=== PATIENT | male | born 1970 | race Native Hawaiian/Other Pacific Islander ===

== ENCOUNTER 2016-03-17 12:00 | Outpatient (CLI) | payer OTHER | END 2016-03-17 12:01 | disposition home or self-care (01) | DX: J06.9 Acute upper respiratory infection, unspecified (principal) ==

== ENCOUNTER 2016-09-21 09:13 | Emergency (ER) | payer OTHER ==
--- NOTE | 2016-09-21 09:56 | XRAY Preliminary Report ---
Exam: XR Wrist 4 View RT IMPRESSION: No fracture. [facility] SITE ID: [id number]
--- NOTE | 2016-09-21 09:59 | XRAY Report ---
EXAM: RIGHT WRIST RADIOGRAPHY EXAM DATE: 09/21/2016 09:47 AM. CLINICAL HISTORY: Patient presents with crush injury to right wrist. Numbness in hand and pain to ant erior and posterior side of wrist. Limited range of motion. COMPARISON: None. TECHNIQUE: 4 views. FINDINGS: Bones: Normal. No fractures or bone lesions. Joints: Normal. No subluxations. Soft Tissues: Normal. No soft tissue swelling. IMPRESSION: No fracture. [facility] Referring Provider Line: [phone] SITE ID: [id number]
[2016-09-21 10:53] VITALS: BP 107/73
--- NOTE | 2016-09-21 10:56 | ED Physician Documentation ---
History of Present Illness - Stated complaint Stated Complaint: R WRIST INJ - Chief complaint Chief Complaint: Ext Problem - History obtained from History obtained from: Patient - Additonal information Additional information: 45-year-old male with no past medical history presents with right wrist pain. Just prior to arrival the patient was pulling an object when it slipped and he struck the volar aspect of his wrist against another hard object causing pain and swelling and occasional numbness and tingling in the right hand. He is now doing better. Is slightly more painful with flexing the affected right wrist. He denies any other injury. He is right-hand dominant. Review of systems: For pertinent positive and negatives in the review of systems please see the history of present illness, otherwise all other systems have been reviewed and are negative. Dragon disclaimer: Parts of this medical record were created using voice recognition technology. Because of the inherent limitations of this system, occasional same sounding word substitutions do occur and persist despite proofreading. Please read the document for context. Review of Systems Musculoskeletal: reports: Extremity pain, Joint pain, Extremity swelling, Joint swelling PD PAST MEDICAL HISTORY - Past Medical History Past Medical History: No Cardiovascular: None Respiratory: None Neuro: None Endocrine/Autoimmune: None GI: None : None HEENT: None Psych: None Musculoskeletal: None Derm: None - Past Surgical History Past Surgical History: Yes General: Cholecystectomy Ortho: Spine surgery - Present Medications Home Medications: Ambulatory Orders Medication Instructions Recorded Confirmed Tramadol HCl 50 mg PO Q8HR PRN #14 tablet 09/21/16 - Allergies Allergies/Adverse Reactions: Allergies Allergy/AdvReac Type Severity Reaction Status Date / Time No Known Drug Allergies Allergy Verified 09/21/16 09:24 - Social History Does the pt smoke?: Yes Smoking Status: Current every day smoker Does the pt drink ETOH?: No Does the pt have substance abuse?: No - Immunizations Immunizations are current?: Yes - POLST Patient has POLST: No PD ED PE NORMAL - General General: Alert and oriented X 3, No acute distress, Well developed/nourished - Extremities Extremities: Other (On examination there is mild soft tissue swelling in the small abrasion seen over the volar aspect of the wrist more on the radial side than the ulnar side. There is a small amount of generalized tenderness to the retinaculum of the right wrist including the dorsal aspect. There is no bony tenderness of the distal radius, ulna, carpal bones metacarpals or phalanges.) Results - Vitals Vitals: Vital Signs - 24 hr 09/21/16 09/21/16 09:22 10:53 Temperature 36.6 C Heart Rate 70 57 L Respiratory 20 16 Rate Blood Pressure 122/83 H 107/73 O2 Saturation 96 98 Oxygen O2 Source Room air PD MEDICAL DECISION MAKING - ED course ED course: Little abrasion contusion noted on the volar aspect of the right wrist. This fits the injury pattern. X-rays are negative. He will be placed in a Velcro splint I will issue a small amount of pain medication follow-up will be with [facility]. The patient wants to return back to work and he will be allowed to do so. Disposition: To home Clinical impression: 1. Right wrist contusion abrasion volar aspect Departure - Departure Disposition: 01 Home, Self Care Clinical Impression: Contusion, wrist Qualifiers: Encounter type: initial encounter Laterality: right Qualified Code(s): S60.211A - Contusion of right wrist, initial encounter Condition: Good Instructions: ED Sprain Wrist Follow-Up: Sameer Cui MD [Primary Care Provider] - Prescriptions: Tramadol HCl 50 mg PO Q8HR PRN #14 tablet PRN Reason: Pain
== END 2016-09-21 11:23 | disposition home or self-care (01) ==
LOC: ED 09:13
DX: S60.211A Contusion of right wrist, initial encounter (principal); W22.8XXA Striking against or struck by other objects, initial encounter; F17.200 Nicotine dependence, unspecified, uncomplicated
CPT/HCPCS: 99283

== ENCOUNTER 2017-02-28 15:45 | Outpatient (CLI) | payer OTHER ==
--- NOTE | 2017-03-01 02:09 | MRI Preliminary Report ---
Exam: MRI LUMBAR SPINE W/O IMPRESSION: 1. Normal conus medullaris and cauda equina. 2. Mild multilevel degenerative changes without high-grade spinal canal or foraminal stenosis. 3. Small acute Schmorl's node at the superior T11 endplate. Comment: The following findings are so common in adults without low back pain that while we report th eir presence, they must be interpreted with caution and in the context of the clinical situation. (Re clari Irby et al, Spine 2001) Prevalence of findings in patients without low back pain: Disk degeneration (any evidence): 92% Disk desiccation/T2 signal loss: 83% Disk height loss: 56% Disk bulge: 64% Disk protrusion: 32% Annular tear/high intensity zone: 38% [facility] SITE ID: [id number]
--- NOTE | 2017-03-01 02:15 | MRI Report ---
EXAM: MRI LUMBAR SPINE WITHOUT CONTRAST EXAM DATE: 02/28/2017 05:08 PM. CLINICAL HISTORY: Chronic low back pain, intermittent leg weakness. COMPARISON: None. TECHNIQUE: Multiplanar, multisequence T1-weighted and fluid-sensitive sequences of the lumbar spine f rom the lower half of T10 to S1 without contrast. Other: None. FINDINGS: Spinal Cord: The conus terminates at T12. The conus medullaris and cauda equina are unremarkable. Alignment: Retrolisthesis at L1-L2 measures 1-2 mm. Bone Marrow: Five [id number] lumbar vertebral bodies are assumed. A small acute Schmorl's node i s noted at the superior T11 endplate. Small chronic Schmorl's nodes are noted at T11-T12, T12-L1, and L1-L2. No other areas of abnormal bone marrow edema are identified. Disk Levels/Facets: T10-T11: On sagittal images, the spinal canal and foramina are patent. T11-T12: On sagittal images, the spinal canal and foramina are patent. T12-L1: On sagittal images, a mild disk bulge is present resulting in mild spinal canal stenosis with out impingement of the conus medullaris. The foramina are patent. L1-L2: A mild disk bulge results in mild bilateral foraminal narrowing and mild spinal canal stenosis . L2-L3: A small left foraminal protrusion results in mild left foraminal narrowing. The spinal canal a nd right foramen are patent. L3-L4: Unremarkable. L4-L5: A disk bulge results in mild bilateral foraminal narrowing and mild spinal canal stenosis. L5-S1: A disk bulge with bilateral facet arthropathy result in mild bilateral foraminal narrowing wit hout spinal canal stenosis. Musculature: Normal. No edema or fatty atrophy. Other: The partially visualized retroperitoneum is unremarkable. IMPRESSION: 1. Normal conus medullaris and cauda equina. 2. Mild multilevel degenerative changes without high-grade spinal canal or foraminal stenosis. 3. Small acute Schmorl's node at the superior T11 endplate. Comment: The following findings are so common in adults without low back pain that while we report th eir presence, they must be interpreted with caution and in the context of the clinical situation. (Re clari Irby et al, Spine 2001) Prevalence of findings in patients without low back pain: Disk degeneration (any evidence): 92% Disk desiccation/T2 signal loss: 83% Disk height loss: 56% Disk bulge: 64% Disk protrusion: 32% Annular tear/high intensity zone: 38% [facility] Referring Provider Line: [phone] SITE ID: [id number]
== END 2017-02-28 15:46 | disposition home or self-care (01) ==
LOC: DI 15:45
PROVIDERS: ATTEND Family Medicine
DX: M54.16 Radiculopathy, lumbar region (principal); M62.81 Muscle weakness (generalized); M51.46 Schmorl's nodes, lumbar region
CPT/HCPCS: 72148

== ENCOUNTER 2017-10-10 04:35 | Emergency (ER) | payer BC, OTHER ==
[2017-10-10] MEDS ORDERED: ONDANSETRON 4 MG/2 ML VIAL IVP STA (04:40)
[2017-10-10] MEDS ORDERED: SODIUM CHLORIDE 0.9% 1,000 ML IV ONE (04:40)
[2017-10-10] MEDS ORDERED: KETOROLAC 60 MG/2 ML VIAL IVP STA (04:40)
[2017-10-10 04:56] LABS: BASOPHILS # (AUTO) 0.1 10^3/uL (0.0-0.1); EOSINOPHILS % (AUTO) 7.8 %; HGB - HEMOGLOBIN 14.2 g/dL (14.0-18.0); LYMPHOCYTES # (AUTO) 5.1 10^3/uL (1.5-3.5); LYMPHOCYTES % (AUTO) 40.7 %; MEAN CORPUSCULAR HEMOGLOBIN 28.3 pg (27.0-31.0); MEAN CORPUSCULAR VOLUME 83.1 fL (80.0-94.0); MEAN PLATELET VOLUME 9.6 fL (7.4-11.4); MONOCYTES # (AUTO) 1.1 10^3/uL (0.0-1.0); MONOCYTES % (AUTO) 9.1 %; NEUTROPHILS # (AUTO) 5.2 10^3/uL (1.5-6.6); NEUTROPHILS % (AUTO) 41.4 %; PLT - PLATELET COUNT 322 10^3/uL (130-450); RED BLOOD COUNT 5.01 10^6/uL (4.70-6.10); RED CELL DISTRIBUTION WIDTH 12.6 % (12.0-15.0); WHITE BLOOD COUNT 12.5 x10^3/uL (4.8-10.8)
[2017-10-10] MEDS ORDERED: fentaNYL 100 MCG/2 ML VIAL IVP STA (04:59)
--- NOTE | 2017-10-10 04:59 | ED Physician Documentation ---
History of Present Illness - Stated complaint Stated Complaint: RT FLANK PAIN - Chief complaint Chief Complaint: Abd Pain - Additonal information Additional information: 46-year-old male presents the emergency department with sudden onset of left- sided flank pain which radiates into his abdomen. The pain started suddenly and his travels down into his pelvis. The patient denies fevers, chills. Positive for nausea. The patient denies any relieving factors. No triggering factors. Symptoms are described as moderate. No other associated symptoms Review of Systems Constitutional: denies: Fever, Chills Eyes: denies: Loss of vision Ears: denies: Ear pain Nose: denies: Rhinorrhea / runny nose Throat: denies: Dental pain / toothache Cardiac: denies: Chest pain / pressure Respiratory: denies: Dyspnea GI: reports: Abdominal Pain, Nausea : denies: Dysuria Skin: denies: Rash Musculoskeletal: denies: Neck pain Neurologic: denies: Generalized weakness Immunocompromised: denies: Chemotherapy PD PAST MEDICAL HISTORY - Past Medical History Past Medical History: No Cardiovascular: None Respiratory: None Endocrine/Autoimmune: None GI: None : None HEENT: None Psych: None Musculoskeletal: None Derm: None - Past Surgical History Past Surgical History: Yes General: Cholecystectomy Ortho: Spine surgery - Present Medications Home Medications: Ambulatory Orders Medication Instructions Recorded Confirmed No Known Home Medications [No 10/10/17 10/10/17 Known Home Medications] - Allergies Allergies/Adverse Reactions: Allergies Allergy/AdvReac Type Severity Reaction Status Date / Time No Known Drug Allergies Allergy Verified 10/10/17 04:43 - Social History Does the pt smoke?: Yes Smoking Status: Current every day smoker Does the pt drink ETOH?: No Does the pt have substance abuse?: No - Immunizations Immunizations are current?: Yes - POLST Patient has POLST: No PD ED PE NORMAL - General General: Alert and oriented X 3. No: No acute distress (The patient appears quite uncomfortable) - HEENT HEENT: Atraumatic, PERRL, Moist mucous membranes - Neck Neck: Supple, no meningeal sign - Cardiac Cardiac: RRR, Strong equal pulses - Respiratory Respiratory: No respiratory distress, Clear bilaterally - Abdomen Abdomen: Soft, Non tender, Non distended - Back Back: No: No CVA TTP (The patient has Left-sided flank pain) - Derm Derm: Normal color, No rash - Extremities Extremities: No deformity - Neuro Neuro: Alert and oriented X 3, Normal speech - Psych Psych: Normal mood Results - Vitals Vitals: Vital Signs - 24 hr 10/10/17 04:39 Temperature 36.6 C Heart Rate 75 Respiratory 18 Rate Blood Pressure 111/45 L O2 Saturation 99 Oxygen O2 Source Room air - Labs Labs: Laboratory Tests 10/10/17 10/10/17 04:46 04:46 WBC 12.5 H RBC 5.01 Hgb 14.2 Hct 41.6 L MCV 83.1 MCH 28.3 MCHC 34.0 RDW 12.6 Plt Count 322 MPV 9.6 Neut # (Auto) 5.2 Lymph # (Auto) 5.1 H [place] # (Auto) 1.1 H Eos # (Auto) 1.0 H Baso # (Auto) 0.1 Absolute Nucleated RBC 0.01 Nucleated RBC % 0.1 Sodium 138 Potassium 3.8 Chloride 103 Carbon Dioxide 27 Anion Gap 8.0 BUN 16 Creatinine 1.3 H Estimated GFR (MDRD) 59 L Glucose 128 H Calcium 9.1 Total Bilirubin 0.3 AST 22 ALT 29 Alkaline Phosphatase 51 Total Protein 6.8 Albumin 4.0 Globulin 2.8 Albumin/Globulin Ratio 1.4 Lipase 38 - Rads (name of study) CT abd/pelvis Radiology: Final report received (Nonobstructing 3 mm left renal calculus. ) PD MEDICAL DECISION MAKING - ED course ED course: While attempting to urinate the patient passed a kidney stone. On reevaluation the patient resting comfortably and his symptoms have resolved. The patient feels sore but the intense symptoms have defervesced. The patient's workup does not reveal any acute abnormality that would necessitate admission to the hospital. Discussed with the patient and his the findings on CT scan. I recommended follow-up with primary care for referral to urology since our hospital does not have a urologist on staff. I discussed warning signs and recommended returning to the emergency department for worsening symptoms or any concerns - Sepsis Event Vital Signs: Vital Signs - 24 hr 10/10/17 04:39 Temperature 36.6 C Heart Rate 75 Respiratory 18 Rate Blood Pressure 111/45 L O2 Saturation 99 Oxygen O2 Source Room air Departure - Departure Disposition: 01 Home, Self Care Clinical Impression: Kidney stone on left side, Flank pain, acute Condition: Good Instructions: ED Stone Renal Passed Follow-Up: Sameer Cui MD [Primary Care Provider] - Within 1 week (Please ask your primary care physician to arrange for an outpatient urology consultation as needed) Comments: Please return to the emergency department for worsening symptoms or any concerns
[2017-10-10 05:09] LABS: ALBUMIN/GLOBULIN RATIO 1.4 (1.0-2.2); BILIRUBIN,TOTAL 0.3 mg/dL (0.2-1.0); CALCIUM 9.1 mg/dL (8.5-10.3); CREATININE 1.3 mg/dL (0.6-1.2); TOTAL PROTEIN 6.8 g/dL (6.7-8.2)
--- NOTE | 2017-10-10 05:46 | CT Report ---
Reason: right flank pain Procedure Date: 10/10/2017 Accession Number: [id number] / [id number] Procedure: CT - Abdomen/Pelvis W/O CPT Code: FULL RESULT: EXAM: CT ABDOMEN AND PELVIS (CT KUB) EXAM DATE: 10/10/2017 05:33 AM. CLINICAL HISTORY: COMPARISONS: ABD/PEL 11/26/2011 12:04 AM. TECHNIQUE: Routine axial helical CT imaging was performed through the abdomen and pelvis without IV contrast. Reconstructions: Coronal and sagittal. In accordance with CT protocol optimization, one or more of the following dose reduction techniques were utilized for this exam: automated exposure control, adjustment of mA and/or KV based on patient size, or use of iterative reconstructive technique. FINDINGS: Lung Bases: Linear atelectasis. No focal infiltrate, effusion, or pneumothorax. Right Kidney/Ureter: No stones, hydronephrosis, or hydroureter. No perinephric fat stranding. Left Kidney/Ureter: 3 mm nonobstructing calculus in the left renal collecting system. No hydronephrosis or hydroureter. Other Solid Organs: Calcified granulomas in the spleen and liver. Gallbladder/Bile Ducts: Changes of cholecystectomy. No biliary dilatation. Peritoneal Cavity: No free fluid, free air or shelby adenopathy. Bowel is grossly unremarkable. Normal appendix. Pelvic Organs: No bladder stones or wall thickening. Noncontrast images of the visualized pelvic organs are unremarkable. Vasculature: Unremarkable. Other: None. IMPRESSION: Nonobstructing 3 mm left renal calculus. [facility]
[2017-10-10 05:50] LABS: BILIRUBIN,URINE NEGATIVE (NEGATIVE); GLUCOSE, URINE (UA) NEGATIVE (NEGATIVE); KETONES,URINE (UA) NEGATIVE (NEGATIVE); LEUKOCYTE ESTERASE, URINE NEGATIVE (NEGATIVE); NITRITE,URINE NEGATIVE (NEGATIVE); OCCULT BLOOD,URINE LARGE (NEGATIVE); PH,URINE 5.5 PH (5.0-7.5); PROTEIN,URINE NEGATIVE (NEGATIVE); UROBILINOGEN,URINE 0.2 (NORMAL) E.U./dL (NORMAL)
[2017-10-10 06:03] LABS: CLARITY,URINE CLEAR (CLEAR)
[2017-10-10 06:04] VITALS: BP 105/69
[2017-10-10 06:07] LABS: BACTERIA,URINE None Seen /HPF (None Seen); MUCUS,URINE Moderate Strands; SQUAMOUS EPITHELIAL CELL,UR RARE Squamous (<= Few)
== END 2017-10-10 06:11 | disposition home or self-care (01) ==
LOC: ED 04:35
DX: N20.0 Calculus of kidney (principal); F17.200 Nicotine dependence, unspecified, uncomplicated
CPT/HCPCS: 36415; 74176; 80053; 81001; 81003; 83690; 85025; 87086; 96361; 96374; 96375; 99283; 99284

== ENCOUNTER 2020-07-21 07:07 | Emergency (ER) | payer BC ==
[2020-07-21 07:37] LABS: BASOPHILS # (AUTO) 0.1 10^3/uL (0.0-0.1); BASOPHILS % (AUTO) 1.4 %; EOSINOPHILS # (AUTO) 0.5 10^3/uL (0.0-0.7); HCT - HEMATOCRIT 45.3 % (42.0-52.0); LYMPHOCYTES # (AUTO) 1.8 10^3/uL (1.5-3.5); LYMPHOCYTES % (AUTO) 27.7 %; MEAN CORPUSCULAR HEMOGLOBIN 28.4 pg (27.0-31.0); MEAN CORPUSCULAR HGB CONC 33.1 g/dL (32.0-36.0); MEAN CORPUSCULAR VOLUME 85.8 fL (80.0-94.0); MEAN PLATELET VOLUME 11.7 fL (7.4-11.4); MONOCYTES # (AUTO) 0.5 10^3/uL (0.0-1.0); MONOCYTES % (AUTO) 8.5 %; NEUTROPHILS # (AUTO) 3.5 10^3/uL (1.5-6.6); NEUTROPHILS % (AUTO) 54.1 %; PLT - PLATELET COUNT 269 10^3/uL (130-450); RED BLOOD COUNT 5.28 10^6/uL (4.70-6.10); RED CELL DISTRIBUTION WIDTH 12.1 % (12.0-15.0); WHITE BLOOD COUNT 6.4 x10^3/uL (4.8-10.8)
[2020-07-21 07:38] LABS: BILIRUBIN,URINE NEGATIVE (NEGATIVE); GLUCOSE, URINE (UA) NEGATIVE (NEGATIVE); KETONES,URINE (UA) NEGATIVE (NEGATIVE); LEUKOCYTE ESTERASE, URINE NEGATIVE (NEGATIVE); NITRITE,URINE NEGATIVE (NEGATIVE); OCCULT BLOOD,URINE LARGE (NEGATIVE); PH,URINE 5.5 PH (5.0-7.5); PROTEIN,URINE TRACE mg/dL (NEGATIVE); UROBILINOGEN,URINE 0.2 (NORMAL) E.U./dL (NORMAL)
[2020-07-21 07:40] LABS: CLARITY,URINE CLOUDY (CLEAR)
[2020-07-21] MEDS ORDERED: KETOROLAC 30 MG/ML VIAL IVP STA (07:40)
[2020-07-21] MEDS ORDERED: LIDOCAINE-MPF 2% 7 ML in SODIUM CHLORIDE 0.9% 50 ML IV STA (07:40)
[2020-07-21] MEDS ORDERED: SODIUM CHLORIDE 0.9% 1,000 ML IV STA (07:40)
[2020-07-21] MEDS ORDERED: IOVERSOL 320 100 ML VIAL IVP ONE ×2 (07:46→08:29)
[2020-07-21 07:48] LABS: BACTERIA,URINE Few /HPF (None Seen); RBC,URINE TNTC /HPF (0-5); SQUAMOUS EPITHELIAL CELL,UR RARE Squamous (<= Few); WBC,URINE 0-3 /HPF (0-3)
[2020-07-21 07:51] LABS: ALBUMIN 4.2 g/dL (3.2-5.5); ALBUMIN/GLOBULIN RATIO 1.6 (1.0-2.2); BILIRUBIN,TOTAL 0.8 mg/dL (0.2-1.0); CALCIUM 9.1 mg/dL (8.5-10.3); CREATININE 1.2 mg/dL (0.6-1.2); POTASSIUM 3.9 mmol/L (3.5-5.0); TOTAL PROTEIN 6.9 g/dL (6.7-8.2)
--- NOTE | 2020-07-21 07:51 | ED Physician Documentation ---
PD HPI ABD PAIN - Stated complaint Stated Complaint: LT SD PX - Chief complaint Chief Complaint: Abd Pain - History obtained from History obtained from: Patient - History of Present Illness Timing - onset: Last night Timing - details: Abrupt onset Pain level max: 9 Pain level now: 9 Quality: Sharp. No: Cramping, Aching, Dull, Stabbing, Throbbing, Indigestion, Fullness/distended, Pain Location: LLQ Radiation: Left flank Associated symptoms: Nausea, Constipation. No: Fever, Vomiting, Hematemesis, Diarrhea - Additional information Additional information: Patient is a 49-year-old male who presents to the emergency department with left flank pain that started last night. Nothing makes it better or worse. Feels similar to prior kidney stones. He states he has had constipation as well. Has never had to have a kidney stone removed. Describes the pain as sharp. Radiates to the left lower quadrant. No fevers. some nausea. no vomiting Review of Systems Ten Systems: 10 systems reviewed and negative Constitutional: denies: Fever, Chills Ears: denies: Ear pain Nose: denies: Rhinorrhea / runny nose, Congestion Respiratory: denies: Cough GI: reports: Nausea. denies: Vomiting, Diarrhea : denies: Dysuria, Frequency, Hesitancy, Hematuria Skin: denies: Rash Musculoskeletal: denies: Neck pain Neurologic: denies: Headache PD PAST MEDICAL HISTORY - Past Medical History Past Medical History: No Cardiovascular: None Respiratory: None Endocrine/Autoimmune: None GI: None : None HEENT: None Psych: None Musculoskeletal: None Derm: None - Past Surgical History Past Surgical History: Yes General: Cholecystectomy Ortho: Spine surgery - Present Medications Home Medications: Ambulatory Orders Medication Instructions Recorded Confirmed HYDROcod/ACETAM 5/325 [[place] 5/325] 1 - 2 ea PO Q6H PRN #14 tablet 07/21/20 Ibuprofen [Motrin] 800 mg PO Q8H PRN #30 tablet 07/21/20 Ondansetron Odt [Zofran] 4 mg TL Q6H PRN #10 tablet 07/21/20 - Allergies Allergies/Adverse Reactions: Allergies Allergy/AdvReac Type Severity Reaction Status Date / Time No Known Drug Allergies Allergy Verified 07/21/20 07:17 - Social History Does the pt smoke?: Yes Smoking Status: Current every day smoker Does the pt drink ETOH?: No Does the pt have substance abuse?: No - Immunizations Immunizations are current?: Yes - POLST Patient has POLST: No PD ED PE NORMAL - Vitals Vital signs reviewed: Yes - General General: Alert and oriented X 3, No acute distress - HEENT HEENT: PERRL, Moist mucous membranes - Neck Neck: Supple, no meningeal sign - Cardiac Cardiac: RRR, Strong equal pulses - Respiratory Respiratory: No respiratory distress, Clear bilaterally - Abdomen Abdomen: Soft, Non distended, Other (Tender palpation left lower quadrant. No peritoneal signs.) - Back Back: No spinal TTP - Derm Derm: Warm and dry - Extremities Extremities: No edema - Neuro Neuro: Alert and oriented X 3 - Psych Psych: Normal mood, Normal affect Results - Vitals Vitals: Vital Signs - 24 hr 07/21/20 07/21/20 07:15 09:26 Temperature 36.3 C L Heart Rate 67 50 L Respiratory 16 16 Rate Blood Pressure 119/99 H 127/92 H O2 Saturation 98 98 Oxygen O2 Source Room air - Labs Labs: Laboratory Tests 07/21/20 07/21/20 07/21/20 07:20 07:30 07:30 WBC 6.4 RBC 5.28 Hgb 15.0 Hct 45.3 MCV 85.8 MCH 28.4 MCHC 33.1 RDW 12.1 Plt Count 269 MPV 11.7 H Neut # (Auto) 3.5 Lymph # (Auto) 1.8 [place] # (Auto) 0.5 Eos # (Auto) 0.5 Baso # (Auto) 0.1 Absolute Nucleated RBC 0.00 Nucleated RBC % 0.0 Sodium 138 Potassium 3.9 Chloride 102 Carbon Dioxide 28 Anion Gap 8.0 BUN 13 Creatinine 1.2 Estimated GFR (MDRD) 64 L Glucose 106 H Calcium 9.1 Total Bilirubin 0.8 AST 20 ALT 23 Alkaline Phosphatase 47 Total Protein 6.9 Albumin 4.2 Globulin 2.7 Albumin/Globulin Ratio 1.6 Lipase 25 Urine Color BROWN Urine Clarity CLOUDY Urine pH 5.5 Ur Specific [place] 1.025 Urine Protein TRACE Urine Glucose (UA) NEGATIVE Urine Ketones NEGATIVE Urine Occult Blood LARGE H Urine Nitrite NEGATIVE Urine Bilirubin NEGATIVE Urine Urobilinogen 0.2 (NORMAL) Ur Leukocyte Esterase NEGATIVE Urine RBC TNTC H Urine WBC 0-3 Ur Squamous Epith Cells RARE Squamous Urine Bacteria Few Ur Microscopic Review INDICATED Urine Culture Comments NOT INDICATED - Rads (name of study) CT abdomen pelvis Radiology: Prelim report reviewed, EMP read contemporaneously, See rad report (4 mm stone in the left proximal ureter with mild left hydronephrosis. ) PD MEDICAL DECISION MAKING - ED course Complexity details: reviewed results, re-evaluated patient, considered differential, d/w patient ED course: Patient with a left-sided ureteral stone. Pain resolved with IV lidocaine and Toradol. Afebrile. No evidence of UTI. No evidence of sepsis. Will place on pain medication for home and have him follow-up with his doctor for further care. Patient counseled regarding signs and symptoms for which I believe and urgent re-evaluation would be necessary. Patient with good understanding of and agreement to plan and is comfortable going home at this time This document was made in part using voice recognition software. While efforts are made to proofread this document, sound alike and grammatical errors may occur. Departure - Departure Disposition: Home, Self Care Clinical Impression: Ureteral stone Condition: Good Instructions: ED Stone Renal W Colic Follow-Up: your,doctor in 1 week [Other] Prescriptions: Ibuprofen [Motrin] 800 mg PO Q8H PRN #30 tablet PRN Reason: PAIN &/OR FEVER HYDROcod/ACETAM 5/325 [[place] 5/325] 1 - 2 ea PO Q6H PRN #14 tablet PRN Reason: Pain Ondansetron Odt [Zofran] 4 mg TL Q6H PRN #10 tablet PRN Reason: Nausea / Vomiting Comments: Drink plenty of fluids. Return if you worsen. Follow-up with your doctor for f urther care. The Motrin will help to stop the spasming of the ureter, you can use the Vicodin for breakthrough pain. Do not drink alcohol or drive while on narcotic pain medicine. Note that many narcotic pain relievers also contain tylenol/acetaminophen. Please ensure that your total dose of acetaminophen from all sources does not exceed 3 grams (3000mg) per day. You may constipated on this medication, take a stool softener such as "Colace" twice a day while you are on it. Also recommend a gtrf-mta-wefxyzz laxative such as senna or MiraLAX any day that you do not have a bowel movement. If you received narcotic pain medication in the emergency department, do not drive or operate machinery for the next 24 hours. IMPRESSION: 4 mm stone in the left proximal ureter with mild left hydronephrosis. Discharge Date/Time: 07/21/20 09:28
[2020-07-21] MEDS ORDERED: ONDANSETRON 4 MG/2 ML VIAL IVP STA (07:58)
--- NOTE | 2020-07-21 08:27 | CT Report ---
PROCEDURE: Abdomen/Pelvis W INDICATIONS: LLQ abd pain CONTRAST: IV CONTRAST: Optiray 320 ml: 100 PO CONTRAST: *NO PO CONTRAST TECHNIQUE: After the administration of 100 mL's contrast, 5 mm thick sections acquired from the diaphragms to th e symphysis. 5 mm thick coronal and sagittal reformats were acquired. For radiation dose reduction, the following was used: automated exposure control, adjustment of mA and/or kV according to patient size. COMPARISON: 10/10/2017 FINDINGS: Image quality: Excellent. ABDOMEN: Lung bases: Lung bases are clear. Heart size is normal. Solid organs: The liver is mildly hypodense consistent with hepatic steatosis. The patient is status post cholecystectomy. The spleen is normal. The pancreas is normal. Both adrenal glands have a normal appearance. The left kidney has a 4 mm stone in the proximal UVJ. There is mild left hydronephrosis. The right kidney is normal. Peritoneum and bowel: The distal esophagus, stomach, small bowel, terminal ileum, appendix, and large bowel are normal. There is no significant diverticulosis. Nodes and vessels: No retroperitoneal or mesenteric adenopathy by size criteria. Aorta and inferior vena cava are normal in size. Miscellaneous: No ventral hernias. PELVIS: Genitourinary: Bladder wall thickness is normal. Miscellaneous: Bilateral fat-containing inguinal hernias. Bones: The left L5 pars has a pars defect. No suspicious bony lesions. No vertebral body compressio n fractures. IMPRESSION: 4 mm stone in the left proximal ureter with mild left hydronephrosis. Reviewed by: Remy Frias on 07/21/2020 8:26 AM PDT Approved by: Remy Frias on 07/21/2020 8:26 AM PDT Station ID: [id number]
[2020-07-21 09:27] VITALS: BP 127/92
== END 2020-07-21 09:28 | disposition home or self-care (01) ==
LOC: ED 07:07
DX: N13.2 Hydronephrosis with renal and ureteral calculous obstruction (principal); F17.200 Nicotine dependence, unspecified, uncomplicated
CPT/HCPCS: 36415; 74177; 80053; 81001; 83690; 85025; 96374; 96375; 99284; J7040; Q9967; 81003; 87086

== ENCOUNTER 2020-07-23 11:53 | Emergency (ER) | payer BC ==
[2020-07-23 12:07] VITALS: BP 153/74
[2020-07-23] MEDS ORDERED: KETOROLAC 30 MG/ML VIAL IVP STA (12:14)
[2020-07-23] MEDS ORDERED: HYDROmorphone 1 MG/ML CARPUJECT IVP STA (12:14)
[2020-07-23 12:53] LABS: CALCIUM 9.6 mg/dL (8.5-10.3); CREATININE 2.1 mg/dL (0.6-1.2); POTASSIUM 4.5 mmol/L (3.5-5.0)
--- NOTE | 2020-07-23 13:06 | ED Physician Documentation ---
PD HPI ABD PAIN - Stated complaint Stated Complaint: KIDNEY STONES - Chief complaint Chief Complaint: Abd Pain - History obtained from History obtained from: Patient - Additional information Additional information: 49-year-old gentleman with history of renal colic saw the esteemed Dr. Keenan 2 days ago and diagnosed with a 4 mm left proximal ureteral stone. Hydrocodone has not been too helpful and he is only got a couple hours of sleep since and still has severe left flank pain although now has slight pain in the left groin. Review of Systems Constitutional: denies: Fever, Chills Eyes: reports: Reviewed and negative Ears: reports: Reviewed and negative Nose: reports: Reviewed and negative Throat: reports: Reviewed and negative Cardiac: reports: Reviewed and negative Respiratory: reports: Reviewed and negative PD PAST MEDICAL HISTORY - Past Medical History Past Medical History: Yes Cardiovascular: None Respiratory: None Endocrine/Autoimmune: None GI: None : None HEENT: None Psych: None Musculoskeletal: None Derm: None - Past Surgical History Past Surgical History: Yes General: Cholecystectomy Ortho: Spine surgery - Present Medications Home Medications: Ambulatory Orders Medication Instructions Recorded Confirmed HYDROcod/ACETAM 5/325 [[place] 5/325] 1 - 2 ea PO Q6H PRN #14 tablet 07/21/20 Ibuprofen [Motrin] 800 mg PO Q8H PRN #30 tablet 07/21/20 Ondansetron Odt [Zofran] 4 mg TL Q6H PRN #10 tablet 07/21/20 Oxycodone HCl/Acetaminophen 1 - 2 each PO Q6H PRN #20 tablet 07/23/20 [Percocet 5-325 mg Tablet] - Allergies Allergies/Adverse Reactions: Allergies Allergy/AdvReac Type Severity Reaction Status Date / Time No Known Drug Allergies Allergy Verified 07/23/20 12:07 - Social History Does the pt smoke?: Yes Smoking Status: Current every day smoker Does the pt drink ETOH?: No Does the pt have substance abuse?: No - Immunizations Immunizations are current?: Yes - POLST Patient has POLST: No PD ED PE NORMAL - Vitals Vital signs reviewed: Yes - General General: Alert and oriented X 3, Other (He is pacing and uncomfortable, on subsequent evaluation after pain medications he is comfortable and dozing.) - HEENT HEENT: PERRL, EOMI - Neck Neck: Supple, no meningeal sign, No bony TTP - Abdomen Abdomen: Normal bowel sounds, Soft, Non tender - Neuro Neuro: Alert and oriented X 3, Normal speech - Psych Psych: Normal mood, Normal affect Results - Vitals Vitals: Vital Signs - 24 hr 07/23/20 12:03 Temperature 36.2 C L Heart Rate 61 Respiratory 16 Rate Blood Pressure 153/74 H O2 Saturation 98 Oxygen O2 Source Room air - Labs Labs: Laboratory Tests 07/23/20 07/23/20 12:30 13:53 Sodium 137 Potassium 4.5 Chloride 99 L Carbon Dioxide 27 Anion Gap 11.0 BUN 17 Creatinine 2.1 H Estimated GFR (MDRD) 33 L Glucose 114 H Calcium 9.6 Urine Color YELLOW Urine Clarity CLEAR Urine pH 5.0 Ur Specific [place] >=1.030 H Urine Protein NEGATIVE Urine Glucose (UA) NEGATIVE Urine Ketones NEGATIVE Urine Occult Blood NEGATIVE Urine Nitrite NEGATIVE Urine Bilirubin NEGATIVE Urine Urobilinogen 0.2 (NORMAL) Ur Leukocyte Esterase NEGATIVE Ur Microscopic Review NOT INDICATED Urine Culture Comments NOT INDICATED PD MEDICAL DECISION MAKING - ED course ED course: 49-year-old gentleman with known left ureteral stone. Failed current outpatient pain management regimen. After some Toradol and Dilaudid he was pain-free here. Note made that his creatinine has gone up and this was discussed with him and close follow-up was advised and he verbalizes understanding. Departure - Departure Disposition: 01 Home, Self Care Clinical Impression: Renal colic Condition: Good Record reviewed to determine appropriate education?: Yes Instructions: ED Stone Renal W Colic Prescriptions: Oxycodone HCl/Acetaminophen [Percocet 5-325 mg Tablet] 1 - 2 each PO Q6H PRN #20 tablet PRN Reason: pain Comments: If pain not better in the next few days, talk with your doctor about referral to a urologist. Return for new or worsening symptoms. Prescription was sent electronically to [facility] I am prescribing a short course of narcotic pain medication for you. These are potentially dangerous and addictive medications that should be used carefully. These medications may constipate you. Take an [id number] stool softener (docusate) twice daily with plenty of water while taking these medications. If you go 24 hours without a bowel movement, take [id number] miralax, per package instructions. Do not drink or drive while taking these medications. If you received narcotic or sedating medications while in the emergency department, do not drive for 24 hours. Store this medication in a safe, secure place and out of reach of children. It is a violation of federal law to give or sell this medication to another person or to use in a manner other than prescribed. The ED will not refill narcotic prescriptions, including prescriptions lost or stolen. To dispose of unwanted medications: 1. [facility] at [address] in [place] has a medication drop box. They accept prescription medications (in pill form) Tuesday through Tuesday 9:00 a.m. to 5:00 p.m. 2. [facility] accepts prescription medications (in pill form only) for disposal year round. Call for more information. 3. Contact the [facility] for the next [facility] sponsored prescription drug collection event. , [phone], or [phone]; Note that many narcotic pain relievers also contain Tylenol/acetaminophen. Please ensure that your total dose of acetaminophen from all sources does not ex ceed 3 g (3000 mg) per day. Discharge Date/Time: 07/23/20 14:34
[2020-07-23 14:05] LABS: BILIRUBIN,URINE NEGATIVE (NEGATIVE); GLUCOSE, URINE (UA) NEGATIVE (NEGATIVE); KETONES,URINE (UA) NEGATIVE (NEGATIVE); LEUKOCYTE ESTERASE, URINE NEGATIVE (NEGATIVE); NITRITE,URINE NEGATIVE (NEGATIVE); OCCULT BLOOD,URINE NEGATIVE (NEGATIVE); PROTEIN,URINE NEGATIVE (NEGATIVE); UROBILINOGEN,URINE 0.2 (NORMAL) E.U./dL (NORMAL)
[2020-07-23 14:06] LABS: CLARITY,URINE CLEAR (CLEAR)
== END 2020-07-23 14:34 | disposition home or self-care (01) ==
LOC: ED 11:53
DX: N20.1 Calculus of ureter (principal); F17.200 Nicotine dependence, unspecified, uncomplicated
CPT/HCPCS: 36415; 80048; 81003; 96374; 96375; 99283; 99284; J1170; 81001; 87086

== ENCOUNTER 2020-09-02 07:00 | Outpatient (CLI) | payer BC | END 2020-09-02 23:59 | disposition home or self-care (01) | LOC: COV 07:00 | PROVIDERS: ATTEND Family Medicine | DX: R05 Cough (principal); R09.81 Nasal congestion; J34.89 Other specified disorders of nose and nasal sinuses; Z20.822 Contact with and (suspected) exposure to COVID-19 ==

== ENCOUNTER 2021-01-01 06:59 | Emergency (ER) | payer OTHER, BC ==
--- NOTE | 2021-01-01 07:38 | ED Physician Documentation ---
PD HPI LOWER EXT INJURY - Stated complaint Stated Complaint: LT KNEE INJURY - Chief complaint Chief Complaint: Ext Problem - History obtained from History obtained from: Patient - History of Present Illness PD HPI LOW EXT INJURY LOCATION: Left, Knee, Buttock Type of injury: Fall (he states he accidnetally stepped on wire/chain or such which slid on germán, causing his left leg to slip. He fell with left knee twisting in valgus stress, and then fell backward onto buttock/sacral area. Had pain left knee anterior laterally, and pain SI area low back. Has some numbness leg.), Twist Where injury occurred: Work Timing - onset: Yesterday Timing - details: Abrupt onset, Still present (having to limp due to pain left knee movement, and feels this augmenting the sacral pain as well.) Worsened by: Moving, Palpating (lateral suprapatellar area.), Other Associated symptoms: Numbness (notes some numbness back of lower leg wrapping to dorsal foot to great toe.). No: Weakness Contributing factors: No: Anticoagulated Similar symptoms before: Diagnosis (had meniscal tear couple years ago and arthroscopic surgery 2020 to clear it out, with good function since.) Recently seen: Not recently seen Review of Systems Constitutional: denies: Fever, Chills Nose: denies: Rhinorrhea / runny nose, Congestion Throat: denies: Sore throat Cardiac: denies: Chest pain / pressure Respiratory: denies: Cough GI: denies: Abdominal Pain Skin: denies: Abrasion (s), Laceration (s) Musculoskeletal: reports: Back pain (onset with fall yesterday, in SI area low back.) PD PAST MEDICAL HISTORY - Past Medical History Past Medical History: No Cardiovascular: None Respiratory: None Endocrine/Autoimmune: None GI: None : None HEENT: None Psych: None Musculoskeletal: None Derm: None - Past Surgical History Past Surgical History: Yes General: Cholecystectomy Ortho: Spine surgery - Present Medications Home Medications: Ambulatory Orders Medication Instructions Recorded Confirmed HYDROcod/ACETAM 5/325 [[place] 5/325] 1 - 2 ea PO Q6H PRN #14 tablet 07/21/20 Ibuprofen [Motrin] 800 mg PO Q8H PRN #30 tablet 07/21/20 Ondansetron Odt [Zofran] 4 mg TL Q6H PRN #10 tablet 07/21/20 Oxycodone HCl/Acetaminophen 1 - 2 each PO Q6H PRN #20 tablet 07/23/20 [Percocet 5-325 mg Tablet] - Allergies Allergies/Adverse Reactions: Allergies Allergy/AdvReac Type Severity Reaction Status Date / Time No Known Drug Allergies Allergy Verified 01/01/21 07:17 - Social History Does the pt smoke?: Yes Smoking Status: Current every day smoker Does the pt drink ETOH?: Yes Does the pt have substance abuse?: No - Immunizations Immunizations are current?: Yes - POLST Patient has POLST: No PD ED PE NORMAL - Vitals Vital signs reviewed: Yes - General General: Alert and oriented X 3, No acute distress, Well developed/nourished - Cardiac Cardiac: RRR, No murmur - Respiratory Respiratory: Clear bilaterally - Back Back: No CVA TTP, No spinal TTP, Other (some tender in left lower SI area and upper gluteal. No noted redness nor bruising. ) - Derm Derm: Normal color, Warm and dry - Extremities Extremities: Other (left knee without notable effusion. Tender supralateral patellar area in distal lateral quads. Not tender MCL area. Not tender lower patella. Stress testing without pain/laxity at MCL nor cruciates. ROM passive without clicking nor popping. 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 ), considered differential (twisted knee with valgus stress when fell, and landed to left lower back/sacral area. I think his numbness down anteromedial lower leg/foot is from radicular/nerve contusion sacral area and not from knee. Knee strain around lower quads muscles/joint capsule. Not tender at inferior patella. ), d/w patient Departure - Departure Disposition: 01 Home, Self Care Clinical Impression: Knee strain Qualifiers: Encounter type: initial encounter Laterality: left Qualified Code(s): S86.912A - Strain of unspecified muscle(s) and tendon(s) at lower leg level, left leg, initial encounter Contusion of lower back Qualifiers: Encounter type: initial encounter Qualified Code(s): S30.0XXA - Contusion of lower back and pelvis, initial encounter Condition: Stable Record reviewed to determine appropriate education?: Yes Instructions: ED Sprain Knee Follow-Up: Jah Berger MD [Provider Admit Priv/Credential] - Comments: 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 The radiology reading is a possible fracture but your x-ray appears similar to prior ones as well. Clinically it does not sound like any patellar fracture. It does sound likely that you have some strain of the knee ligaments. The major ones of the ACL and MCL seem okay. It is possible he may have some inflammation of the meniscus with the mechanism of injury. I think he does have some bruising of the low back and the muscles and nerve running through that area which is causing the numbness down the leg to the foot. I would anticipate that improving with time as the inflammation of the nerve decreases. Decrease activity for the next 3 to 5 days with mostly sedentary. Use the hinged knee brace when up and around to help support the knee ligaments. Ibuprofen 600 mg 3 times a day with food for the next 5 to 7 days. Add Tylenol every 4 hours if needed for pain. Follow-up with orthopedics if not improved well over the next several days to week. Forms: Activity restrictions Discharge Date/Time: 01/01/21 09:19
[2021-01-01] MEDS ORDERED: ACETAMINOPHEN 325 MG TABLET PO STA (07:56)
[2021-01-01] MEDS ORDERED: IBUPROFEN 600 MG TABLET PO STA (07:56)
--- NOTE | 2021-01-01 08:35 | XRAY Report ---
PROCEDURE: Knee 3 View LT INDICATIONS: twist and fall yesterday TECHNIQUE: 3 views of the left knee(s) were acquired. COMPARISON: None. FINDINGS: Bones: Minimally displaced inferior lateral patellar fracture. 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 No suspicious bony lesions. Soft tissues: Moderate joint effusion. No suspicious soft tissue calcifications. IMPRESSION: Inferolateral patellar fracture with moderate effusion. Reviewed by: Brittanie Villalobos MD on 01/01/2021 8:34 AM [facility] Approved by: Brittanie Villalobos MD on 01/01/2021 8:34 AM PST Station ID: [id number]
[2021-01-01 09:18] VITALS: BP 110/84
== END 2021-01-01 09:19 | disposition home or self-care (01) ==
LOC: ED 06:59
DX: S86.912A Strain of unspecified muscle(s) and tendon(s) at lower leg level, left leg, initial encounter (principal); S30.0XXA Contusion of lower back and pelvis, initial encounter; X50.1XXA Overexertion from prolonged static or awkward postures, initial encounter; W01.0XXA Fall on same level from slipping, tripping and stumbling without subsequent striking against object, initial encounter; Y99.0 Civilian activity done for income or pay; F17.200 Nicotine dependence, unspecified, uncomplicated
CPT/HCPCS: 73562; 99282; 99283; A9270

== ENCOUNTER 2021-01-05 13:34 | Outpatient (CLI) | payer OTHER, BC ==
--- NOTE | 2021-01-05 14:09 | XRAY Report ---
PROCEDURE: Knee 4 View LT INDICATIONS: Left knee pain. TECHNIQUE: 3 views of the left knee(s) were acquired. AP weightbearing view of both knees. COMPARISON: January 01, 2021 FINDINGS: BONES/JOINT: No acute, displaced fracture or dislocation. Small suprapatellar joint effusion.Mild tri compartment osteophytosis. Bilateral bipartite patella. Inferior patellar enthesophyte. SOFT TISSUES: Bilateral linear calcifications in the lateral compartment, compatible with meniscal ca lcification. IMPRESSION: 1.No acute osseous abnormality. Reviewed by: Ludwin Mcfarlane MD on 01/05/2021 2:08 PM PST Approved by: Ludwin Mcfarlane MD on 01/05/2021 2:08 PM PST Station ID: [id number]
== END 2021-01-05 23:59 | disposition home or self-care (01) ==
LOC: DI.N 13:34
PROVIDERS: ATTEND Physician Assistant
DX: M25.562 Pain in left knee (principal)